=== PATIENT | female | born 1990 | race Asian ===

== ENCOUNTER 2018-04-30 16:40 | Emergency (ER) | payer SELFPAY ==
[2018-04-30] MEDS ORDERED: Sodium Chloride Irrig Solution 250 ML BOT ONE (18:00)
[2018-04-30] MEDS ORDERED: Triple Antibiotic Oint 1 GM Packet ONE (18:26)
[2018-04-30] MEDS ORDERED: Adacel (T-DAP) 0.5 ML VIAL ONE (18:26)
--- NOTE | 2018-04-30 19:12 | RAD ---
LEFT KNEE FOUR VIEWS: HISTORY: Trauma. Fall three days ago. COMPARISON: None. FINDINGS: No acute displaced fracture or malalignment. The soft tissues are unremarkable. No significant join t effusion. Mild medial soft tissue edema. IMPRESSION: Mild medial soft tissue edema without acute displaced fracture or malalignment. POS: CLARA
== END 2018-04-30 18:41 | disposition home or self-care (01) ==
LOC: MADERS 16:40
DX: S80.02XA Contusion of left knee, initial encounter (principal); W18.30XA Fall on same level, unspecified, initial encounter
CPT/HCPCS: 90471; 90715

== ENCOUNTER 2023-07-17 12:47 | Emergency (ER) | payer OTHER, SELFPAY | END 2023-07-17 14:00 | disposition home or self-care (01) | LOC: MADERS 12:47 | DX: S39.012A Strain of muscle, fascia and tendon of lower back, initial encounter (principal); V89.2XXA Person injured in unspecified motor-vehicle accident, traffic, initial encounter | CPT/HCPCS: 72100 ==